=== PATIENT | female | born 2000 | race Two or more races ===

== ENCOUNTER 2023-09-21 12:04 | Emergency (ER) | payer OTHER ==
[2023-09-21 12:19] VITALS: BP 101/53; PULSE 60; RESP 18; TEMP 98.6; BMI 22.4
[2023-09-21 13:50] LABS: BASO % 0.4 % (0-2.0); EOS % 1.8 % (0-4.5); HEMATOCRIT 42.4 % (32.4-45.2); HEMOGLOBIN 14.1 GM/dL (10.7-15.3); MCH 30.6 pg (25.7-33.7); MCHC 33.4 g/dl (32.0-36.0); MEAN CELL VOLUME 91.7 fl (80-96); MEAN PLT VOLUME 7.5 fl (7.5-11.1); MONO % 5.6 % (3.8-10.2); NEUT % 71.2 % (42.8-82.8); PH,URINE 7.5 (5.0-8.0); PLATELET COUNT 284 10^3/uL (134-434); RBC 4.62 M/mm3 (3.60-5.2); RDW 13.7 % (11.6-15.6); URINE APPEARANCE TURBID; URINE BILIRUBIN NEGATIVE (NEGATIVE); URINE COLOR YELLOW; URINE GLUCOSE (UA) NEGATIVE (NEGATIVE); URINE KETONE NEGATIVE (NEGATIVE); URINE LEUK ESTERASE NEGATIVE (NEGATIVE); URINE NITRITE NEGATIVE (NEGATIVE); URINE PROTEIN NEGATIVE (NEGATIVE); WHITE BLOOD COUNT 8.6 K/mm3 (4.0-10.0)
[2023-09-21 14:07] LABS: HCG,QUALITATIVE URINE Positive
[2023-09-21 14:18] LABS: POTASSIUM 4.4 mmol/L (3.5-5.1)
[2023-09-21 14:20] LABS: ALBUMIN 3.1 g/dl (3.4-5.0); BLOOD UREA NITROGEN 5.7 mg/dL (7-18); CALCIUM 8.8 mg/dL (8.5-10.1)
[2023-09-21 14:23] LABS: CREATININE 0.5 mg/dL (0.55-1.3)
[2023-09-21 14:25] LABS: BILIRUBIN,TOTAL 0.3 mg/dL (0.2-1); TOT PROT 6.7 g/dl (6.4-8.2)
== END 2023-09-21 18:01 | disposition home or self-care (01) ==
LOC: JERFT 12:04
DX: O20.9 Hemorrhage in early pregnancy, unspecified (principal); O26.891 Other specified pregnancy related conditions, first trimester; R10.30 Lower abdominal pain, unspecified; Z3A.08 8 weeks gestation of pregnancy
CPT/HCPCS: 36415; 76817-TC; 80053; 81003; 84702; 84703; 85025; 86850; 86900; 86901; 87086; 99284-25